=== PATIENT | female | born 1995 ===

== ENCOUNTER → 2021-01-19 | Outpatient (CLI) | payer OTHER | LOC: MC.RAD 01-12 08:00 | DX: N64.4 Mastodynia (principal); N63.10 Unspecified lump in the right breast, unspecified quadrant; N63.20 Unspecified lump in the left breast, unspecified quadrant ==

== ENCOUNTER → 2023-11-25 | Outpatient (CLI) | payer OTHER ==
[2023-11-25 09:36] LABS: BASO % 0.4 % (0.0-2.0); EOS # 0.5 K/mm3 (0.0-0.7); EOS % 6.1 % (0.0-4.0); GRAN % 56.6 % (42.2-75.2); HEMATOCRIT 43.4 % (37.0-47.0); HEMOGLOBIN 14.8 g/dl (12.5-16.0); LYMPH # 2.7 K/mm3 (1.2-3.4); LYMPH % 30.3 % (20.0-51.0); MEAN CELL VOLUME 84 fl (80.0-100.0); MEAN CORPUSCULAR HEMOGLOBIN 29 pg (27-31); MEAN CORPUSCULAR HGB CONC 34 g/dl (33.0-37.0); MONO # 0.6 K/mm3 (0.1-0.6); MONO % 6.4 % (1.7-9.3); PLATELET COUNT 337 K/mm3 (130-400)
[2023-11-25 10:21] LABS: ALBUMIN 4.5 g/dL (3.5-5.0); BILIRUBIN,DIRECT 0.3 mg/dL (0.0-0.5); BILIRUBIN,TOTAL 0.8 mg/dL (0.2-1.2); TOTAL PROTEIN 8.4 g/dl (6.2-8.1)
[2023-11-26 16:01] LABS: TB GOLD INTERPRETATION Negative (Negative)
== END ==
LOC: COL.LAB 08:26
PROVIDERS: Nurse Practitioner Family
DX: Z51.81 Encounter for therapeutic drug level monitoring (principal); Z79.899 Other long term (current) drug therapy